=== PATIENT | female | born 1940 | race Caucasian/White ===

== ENCOUNTER → 2018-03-10 | Outpatient (CLI) | payer MEDICARE ==
[~2018-03-10] MED LIST: DIOVAN160 MG PO; FOLIC ACID5 MG/ML PO; FOLITAB 500 CA1 EACH PO; NORCO 10-325 T1 EACH PO; RHEUMATREX2.5 MG PO; ZOFRAN4 MG PO
== END ==
LOC: RAD 13:55
PROVIDERS: ATTEND Family Medicine
DX: R60.9 Edema, unspecified (principal)
CPT/HCPCS: 93971

== ENCOUNTER 2024-04-03 13:30 | Emergency (ER) | payer MEDICARE ==
[~2024-04-03] VITALS: Ht 157.5 cm; Wt 45.4 kg
[~2024-04-03 13:30] MED LIST changes: +AMLODIPINE BESYL5 MG PO; +ATORVASTATIN CA20 MG PO; +CEFDINIR300 MG PO; +COREG6.25 MG PO; +FOLIC ACID0.4 MG PO; +HYDROCODON-ACE1 EAC9; +HYDROXYCHLOROQ100 MG; +ISOSORBIDE DINI30 MG PO; +LOSARTAN POTAS100 MG PO; +LOSARTAN POTASS25 MG PO; +METHOTREXATE2.5 MG PO; +NORVASC10 MG PO; +PROBIOTIC & AC1 EACH PO; +PROMETHAZINE HC25 M1 PO; +PROMETHAZINE HC25 MG PR; +REGLAN10 MG PO
[2024-04-03 13:50] VITALS: TEMP 98
[2024-04-03] MEDS ORDERED: SODIUM CHLORIDE FLUSH 10 ML SYR IV PRN (14:00)
[2024-04-03 14:17] LABS: BASOPHILS # (AUTO) 0.2 (0.0-0.1); BASOPHILS % 1.5 % (0.0-1.0); EOSINOPHILS # (AUTO) 0.7 (0.0-0.4); EOSINOPHILS % 6.9 % (0.0-6.0); HEMATOCRIT 34.1 % (34.2-44.1); HEMOGLOBIN 10.8 g/dL (12.0-16.0); LYMPHOCYTES # (AUTO) 2.2 (1.0-3.2); LYMPHOCYTES % 21.9 % (18.0-39.1); MEAN CORPUSCULAR HEMOGLOBIN 32.6 pg (28-32); MEAN CORPUSCULAR HGB CONC 31.7 g/dL (31-35); MONOCYTES # (AUTO) 0.6 (0.2-0.8); MONOCYTES % 5.6 % (4.4-11.3); NEUTROPHILS # (AUTO) 6.6 (2.1-6.9); NEUTROPHILS % 63.9 % (38.7-80.0); PLATELET COUNT 181 x10e3/uL (140-360); RED BLOOD COUNT 3.31 x10e6/uL (3.6-5.1); RED CELL DISTRIBUTION WIDTH 14.2 % (11.7-14.4); WHITE BLOOD COUNT 10.25 x10e3/uL (4.8-10.8)
[2024-04-03 14:34] LABS: ALBUMIN 3.2 g/dL (3.5-5.0); ANION GAP 15.2 mmol/L (8-16); BILIRUBIN,TOTAL 0.4 mg/dL (0.2-1.2); CALCIUM 9.1 mg/dL (8.4-10.2); CREATININE, SERUM 1.55 mg/dL (0.57-1.11); POTASSIUM 4.2 mmol/L (3.5-5.1); TOTAL PROTEIN 6.5 g/dL (6.5-8.1)
[2024-04-03 14:42] LABS: TROPONIN I 0.019 ng/mL (0-0.300)
[2024-04-03 15:21] VITALS: PULSE 53; RESP 17
[2024-04-03 16:32] VITALS: BP 119/72; PULSE 50; RESP 16; TEMP 97.8; O2SAT 100
== END 2024-04-03 16:41 | disposition home or self-care (01) ==
LOC: ER 14:03
DX: R03.1 Nonspecific low blood-pressure reading (principal); R00.1 Bradycardia, unspecified; I10 Essential (primary) hypertension; E78.5 Hyperlipidemia, unspecified; M19.09 Primary osteoarthritis, other specified site; M06.9 Rheumatoid arthritis, unspecified; I25.2 Old myocardial infarction; Z95.5 Presence of coronary angioplasty implant and graft
CPT/HCPCS: 36415; 71045; 80053; 83880; 84484; 85025; 99283